=== PATIENT | female | born 1990 | race Caucasian/White ===

== ENCOUNTER 2020-09-01 13:53 | Emergency (ER) | payer OTHER ==
[~2020-09-01] VITALS: Ht 170.2 cm; Wt 61.8 kg
--- NOTE | 2020-09-01 14:38 | PHYS DOC ---
General Adult EDM: Chief Complaint: VAGINAL BLEEDING HPI: HPI: History obtained from the patient. Patient is a 30-year-old G1, P1 female who presents with chief complaint of abnormal uterine bleeding. Patient states she had a Mirena IUD removed 3 months ago. She states she has had consistent. Since then. She notes every 28 days she typically has vaginal bleeding for 5 days. States first day of her last menstrual period was August 20. She states however she began having bleeding 3 days ago that is not consistent with her period. 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 She denies any clot passage. Denies any abdominal pain. Denies any pelvic trauma. Denies any syn cope. Denies chest pain, lightheadedness, or shortness of breath. Denies back pain. Denies any urinary symptoms. States she did take a test 1-1/2 months ago and was normal. States she had the Mirena removed due to family planning. Denies any family history of gynecologic or cervical cancers. States she did have a normal Pap smear in May. Denies blood thinner usage. Denies any history of coagulopathy. 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 No other complaints. Review of Systems: Review of Systems: Constitutional: Denies fever or chills Eyes: Denies change in visual acuity HENT: Denies nasal congestion or sore throat Respiratory: Denies cough or shortness of breath Cardiovascular: Denies chest pain or edema GI: Denies abdominal pain, nausea, vomiting, bloody stools or diarrhea : Positive for vaginal bleeding Musculoskeletal: Denies back pain or joint pain Integument: Denies rash Neurologic: Denies headache, focal weakness or sensory changes Endocrine: Denies polyuria or polydipsia Lymphatic: Denies swollen glands Psychiatric: Denies depression or anxiety Heart Score: Risk Factors: Risk Factors: DM, Current or recent (<one month) smoker, HTN, HLP, family history of CAD, obesity. Risk Scores: Score 0 - 3: 2.5% MACE over next 6 weeks - Discharge Home Score 4 - 6: 20.3% MACE over next 6 weeks - Admit for Clinical Observation Score 7 - 10: 72.7% MACE over next 6 weeks - Early Invasive Strategies Allergies: Allergies: Allergies Coded Allergies Type Severity Reaction Last Updated Verified No Known Drug Allergies 09/01/20 No Physical Exam: PE: Constitutional: Well developed, well nourished, no acute distress, non-toxic appearance. [] HENT: Normocephalic, atraumatic, bilateral external ears normal, oropharynx moist, no oral exudates, nose normal. [] Eyes: PERRLA, EOMI, conjunctiva normal, no discharge. [] Neck: Normal range of motion, no tenderness, supple, no stridor. [] Cardiovascular:Heart rate regular rhythm, no murmur [] Lungs & Thorax: Bilateral breath sounds clear to auscultation [] Abdomen: Soft, nontender, nonacute abdomen. No involuntary guarding or rigidity noted. No acute peritonitis. Skin: Warm, dry, no erythema, no rash. [] Back: No tenderness, no CVA tenderness. [] Extremities: No tenderness, no cyanosis, no clubbing, ROM intact, no edema. [] Neurologic: Alert and oriented X 3, normal motor function, normal sensory function, no focal deficits noted. [] Psychologic: Affect normal, judgement normal, mood normal. [] Current Patient Data: Labs: Laboratory Tests Test 09/01/20 14:44 09/01/20 14:48 Bedside Urine HCG, Qualitative hcg negative White Blood Count 6.8 x10^3/uL Red Blood Count 4.76 x10^6/uL Hemoglobin 13.6 g/dL Hematocrit 41.3 % Mean Corpuscular Volume 87 fL Mean Corpuscular Hemoglobin 29 pg Mean Corpuscular Hemoglobin Concent 33 g/dL Red Cell Distribution Width 12.9 % Platelet Count 280 x10^3/uL Neutrophils (%) (Auto) 60 % Lymphocytes (%) (Auto) 30 % Monocytes (%) (Auto) 8 % Eosinophils (%) (Auto) 2 % Basophils (%) (Auto) 1 % Neutrophils # (Auto) 4.1 x10^3uL Lymphocytes # (Auto) 2.0 x10^3/uL Monocytes # (Auto) 0.5 x10^3/uL Eosinophils # (Auto) 0.1 x10^3/uL Basophils # (Auto) 0.0 x10^3/uL Sodium Level 139 mmol/L Potassium Level 4.1 mmol/L Chloride Level 104 mmol/L Carbon Dioxide Level 29 mmol/L Anion Gap 6 Blood Urea Nitrogen 11 mg/dL Creatinine 1.0 mg/dL Estimated GFR (Cockcroft-Gault) 64.7 Glucose Level 113 mg/dL Calcium Level 9.5 mg/dL EKG: EKG: [] Radiology/Procedures: Radiology/Procedures: [address] [address] IMAGING REPORT Signed PATIENT: DIANDRA PETERSON ACCOUNT: [id number] : 1990 LOCATION: ER AGE: 30 SEX: F EXAM STATUS: REG ER ORD. PHYSICIAN: ESSENCE CARLSON DO REASON: abnormal uterine bleeding PROCEDURE: PELVIS COMPLETE Transabdominal pelvic ultrasound. INDICATION: Abnormal uterine bleeding. TECHNIQUE: Grayscale and color Doppler and spectral Doppler imaging of the pelvis was performed transabdominally using an acoustic window the distended urinary bladder. FINDINGS: The uterus measures 7.6 x 5.8 x 3.8 cm. Nabothian cyst in the upper cervix is incidentally noted. The endometrial stripe measures 4 mm. The right ovary measures 2.5 x 2.2 x 1.5 cm and demonstrates normal blood flow. The left ovary measures 2.1 x 2.5 x 1.2 cm and also demonstrates normal blood flow in its visualized portion. The left ovary is partly obscured by bowel gas. No pelvic free fluid or adnexal mass. The urinary bladder in the visualized portion is unremarkable. IMPRESSION: Normal transabdominal pelvic ultrasound. Electronically signed by: Lennox Abbott MD (09/01/2020 3:32 PM) [id number] DICTATED AND SIGNED BY: LENNOX ABBOTT MD DATE: 09/01/20 1532 CC: PCP,NO; ESSENCE CARLSON DO ~ [] Course & Med Decision Making: Course & Med Decision Making Pertinent Labs and Imaging studies reviewed. (See chart for details) [] Patient is very pleasant and well-appearing 30-year-old female who presents with chief complaint of light vaginal bleeding over the past 3 days. States it is unusual because is not time for her normal period. Urinalysis negative for . CBC without anemia. Pelvic ultrasound grossly unremarkable. Patient is declining pelvic exam at this time. Overall I do feel this is reasonable given she has no severe bleeding, pelvic pain, or abnormal imaging. 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 Return precautions discussed and understood. Stable for discharge home. Heydi Disclaimer: Heydi Disclaimer: This electronic medical record was generated, in whole or in part, using a voice recognition dictation system. Departure Departure: Impression: Primary Impression: Abnormal uterine bleeding Disposition: 01 DC HOME SELF CARE/HOMELESS Condition: STABLE Referrals: PCP,NO (PCP) PHIL CASTRO MD Patient Instructions: Abnormal Uterine Bleeding Additional Instructions: Please follow-up your primary care physician and BLOW DOWN OPERATOR next week. ESSENCE CARLSON DO Sep 01, 2020 14:38
[2020-09-01 15:16] LABS: BASO % 1 % (0-3); EOS # 0.1 x10^3/uL (0.0-0.7); EOS % 2 % (0-3); HEMATOCRIT 41.3 % (36.0-47.0); HEMOGLOBIN 13.6 g/dL (12.0-15.5); LYMPH % 30 % (24-48); MEAN CORPUSCULAR HEMOGLOBIN 29 pg (25-35); MEAN CORPUSCULAR HGB CONC 33 g/dL (31-37); MEAN CORPUSCULAR VOLUME 87 fL (79-100); MONO # 0.5 x10^3/uL (0.0-1.1); MONO % 8 % (0-9); NEUT # 4.1 x10^3uL (1.8-7.7); NEUT % 60 % (31-73); PLATELET COUNT 280 x10^3/uL (140-400); RED BLOOD COUNT 4.76 x10^6/uL (3.50-5.40); RED CELL DISTRIBUTION WIDTH 12.9 % (11.5-14.5); WHITE BLOOD COUNT 6.8 x10^3/uL (4.0-11.0)
[2020-09-01 15:28] LABS: CALCIUM 9.5 mg/dL (8.5-10.1); GFR 64.7; POTASSIUM 4.1 mmol/L (3.5-5.1)
--- NOTE | 2020-09-01 15:34 | RAD ---
Transabdominal pelvic ultrasound. INDICATION: Abnormal uterine bleeding. TECHNIQUE: Grayscale and color Doppler and spectral Doppler imaging of the pelvis was performed transabdominally using an acoustic window the distended urinary bladder. FINDINGS: The uterus measures 7.6 x 5.8 x 3.8 cm. Nabothian cyst in the upper cervix is incidentally noted. The endometrial stripe measures 4 mm. The right ovary measures 2.5 x 2.2 x 1.5 cm and demonstrates normal blood flow. The left ovary measures 2.1 x 2.5 x 1.2 cm and also demonstrates normal blood flow in its visualized portion. The left ovary is partly obscured by bowel gas. No pelvic free fluid or adnexal mass. The urinary bladder in the visualized portion is unremarkable. IMPRESSION: Normal transabdominal pelvic ultrasound. Electronically signed by: Gabe Abbott MD (09/01/2020 3:32 PM) [id number]
[2020-09-01 16:00] VITALS: BP 122/62
== END 2020-09-01 16:04 | disposition home or self-care (01) ==
LOC: ER 13:53
DX: N93.8 Other specified abnormal uterine and vaginal bleeding (principal)
CPT/HCPCS: 36415; 76856; 80048; 81025; 85025; 99284

== ENCOUNTER 2021-06-25 01:52 | Emergency (ER) | payer OTHER ==
--- NOTE | 2021-06-25 02:41 | PHYS DOC ---
Past History Past Medical History: No Pertinent History Past Surgical History: Other Additional Past Surgical Histo: WISDOM TEETH Alcohol Use: Rarely General Adult EDM: Chief Complaint: EARACHE/EAR PAIN HPI: HPI: 31-year-old female presents with sore throat. She has had a sore throat for 3 days now. It mostly only hurts at night and early in the morning. Tonight she just was unable to sleep so she came in to make sure she did not have strep. She denies fever or chills. She has tried throat lozenges, ice water and Tylenol. She is so she cannot take ibuprofen. Review of Systems: Review of Systems: Constitutional: Denies fever or chills Eyes: Denies change in visual acuity HENT: sore throat Respiratory: Denies cough or shortness of breath Cardiovascular: Denies chest pain or edema GI: Denies abdominal pain, nausea, vomiting, bloody stools or diarrhea : Denies dysuria Musculoskeletal: Denies back pain or joint pain Integument: Denies rash Neurologic: Denies headache, focal weakness or sensory changes Endocrine: Denies polyuria or polydipsia Lymphatic: Denies swollen glands Psychiatric: Denies depression or anxiety Allergies: Allergies: Allergies Coded Allergies Type Severity Reaction Last Updated Verified No Known Drug Allergies 09/01/20 No Physical Exam: PE: Constitutional: Well developed, well nourished, no acute distress, non-toxic appearance. [] HENT: Normocephalic, atraumatic, bilateral external ears normal, oropharynx mildly erythematous without tonsillar exudates, nose normal. Bilateral tympanic membranes normal [] Eyes: PERRLA, EOMI, conjunctiva normal, no discharge. [] Neck: Normal range of motion, prominent bilateral anterior cervical lymph nodes [] Cardiovascular: Heart rate regular rhythm, no murmur [] Lungs & Thorax: Bilateral breath sounds clear to auscultation [] Abdomen: Bowel sounds normal, soft, no tenderness, no masses, no pulsatile masses. [] Skin: Warm, dry, no erythema, no rash. [] Back: No tenderness, no CVA tenderness. [] Extremities: No tenderness, no cyanosis, no clubbing, ROM intact, no edema. [] Neurologic: Alert and oriented X 3, normal motor function, normal sensory function, no focal deficits noted. [] Psychologic: Affect normal, judgement normal, mood normal. [] EKG: EKG: [] Radiology/Procedures: Radiology/Procedures: [] Heart Score: C/O Chest Pain: N/A Risk Factors: Risk Factors: DM, Current or recent (<one month) smoker, HTN, HLP, family history of CAD, obesity. Risk Scores: Score 0 - 3: 2.5% MACE over next 6 weeks - Discharge Home Score 4 - 6: 20.3% MACE over next 6 weeks - Admit for Clinical Observation Score 7 - 10: 72.7% MACE over next 6 weeks - Early Invasive Strategies Course & Med Decision Making: Course & Med Decision Making Pertinent Labs and Imaging studies reviewed. (See chart for details) The patient appears to have viral pharyngitis. Her rapid strep was negative. Her exam is not consistent with strep pharyngitis. I have advised supportive care. She is stable for discharge at this time. [] Heydi Disclaimer: Heydi Disclaimer: This electronic medical record was generated, in whole or in part, using a voice recognition dictation system. Departure Departure: Impression: Primary Impression: Viral pharyngitis Disposition: HOME / SELF CARE / HOMELESS Condition: STABLE Referrals: PCP,NO (PCP) Patient Instructions: Viral Pharyngitis ALIZE RICKS DO Jun 25, 2021 02:41
== END 2021-06-25 02:53 | disposition home or self-care (01) ==
LOC: ER 01:52
DX: O26.892 Other specified pregnancy related conditions, second trimester (principal); J02.8 Acute pharyngitis due to other specified organisms; Z3A.28 28 weeks gestation of pregnancy
CPT/HCPCS: 87070; 87880; 99283